=== PATIENT | male | born 1980 | race Caucasian/White ===

== ENCOUNTER 2020-03-30 23:31 | Emergency (ER) | payer SELFPAY ==
[~2020-03-30] VITALS: Ht 165.1 cm; Wt 99.6 kg
[2020-03-31] MEDS ORDERED: MAGIC MOUTHWASH SUSPENSION BTL SSP STA (00:29)
[2020-03-31] MEDS ORDERED: NORCO 5/325MG TABLET (BULK FOR ED) PO ONE (00:30)
[2020-03-31] MEDS ORDERED: CLINDAMYCIN 150MG CAPSULE PO ONE (00:30)
[2020-03-31] MEDS ORDERED: HYDR-3715 PO (00:35)
[2020-03-31] MEDS ORDERED: MAGICMW SSP (00:35)
[2020-03-31] MEDS ORDERED: CLEO300C2 PO (00:35)
[2020-03-31 00:48] VITALS: BP 157/99
== END 2020-03-31 00:52 | disposition home or self-care (01) ==
LOC: M ED 23:31
DX: K04.7 Periapical abscess without sinus (principal); I10 Essential (primary) hypertension; Z87.891 Personal history of nicotine dependence; Z88.0 Allergy status to penicillin; Z88.5 Allergy status to narcotic agent; Z88.8 Allergy status to other drugs, medicaments and biological substances